=== PATIENT | female | born 1960 | race Caucasian/White ===

== ENCOUNTER 2020-12-15 12:18 | Emergency (ER) | payer OTHER ==
[~2020-12-15] VITALS: Ht 162.6 cm; Wt 79.4 kg
[2020-12-15] MEDS ORDERED: ZPAK PO (13:35)
[2020-12-15] MEDS ORDERED: TESSALON PERLE100 MG PO ×2 (13:35→13:37)
[2020-12-15] MEDS ORDERED: DEXAMETHASONE 44 M1 PO (13:35)
[2020-12-15] MEDS ORDERED: ZOFRAN ODT4 MG DISSOLVE (13:35)
[2020-12-15 13:46] VITALS: BP 110/68
== END 2020-12-15 13:47 | disposition home or self-care (01) ==
LOC: M.ERS 12:18
DX: U07.1 COVID-19 (principal); Z98.890 Other specified postprocedural states; Z88.0 Allergy status to penicillin